=== PATIENT | female | born 1970 | race Caucasian/White ===

== ENCOUNTER → 2016-10-21 | Outpatient (CLI) | payer OTHER ==
[~2016-10-21] MED LIST: CHOL10002 PO; METO25TA35 PO; MULT-257 PO; OMEG300C PO; SERT100T5 PO; THYR30TA PO
== END | disposition home or self-care (01) ==
LOC: CFH 13:45
PROVIDERS: ATTEND Family Medicine
DX: Z12.31 Encounter for screening mammogram for malignant neoplasm of breast (principal); N64.89 Other specified disorders of breast; Z80.3 Family history of malignant neoplasm of breast
CPT/HCPCS: G0202

== ENCOUNTER 2019-06-21 15:41 | Outpatient (CLI) | payer OTHER ==
[~2019-06-21 15:41] MED LIST changes: +SERT100T32 PO; -SERT100T5 PO
[2019-06-21] MEDS ORDERED: FLUO20CA19 PO (15:52)
== END 2019-06-21 23:59 | disposition home or self-care (01) ==
LOC: STAR 15:41
PROVIDERS: ATTEND Obstetrics & Gynecology Female Pelvic Medicine and Reconstructive Surgery
DX: Z02.9 Encounter for administrative examinations, unspecified (principal)